=== PATIENT | female | born 1975 | race Caucasian/White ===

== ENCOUNTER 2022-03-10 10:43 | Observation (INO) ==
[~2022-03-10 10:43] MED LIST: Naloxone 0.4 mg VIAL 0.4 mg/ml 1 ml VIAL IV PUSH PRN
[2022-03-10 11:12] LABS: Rapid COVID-19 Molecular Detected (Undetected)
[2022-03-10] MEDS ORDERED: CLINDAMYCIN 900 MG IVPB ONE (11:30)
[2022-03-10] MEDS ORDERED: oxyCODONE SR 10 mg TAB ONE (12:19)
[2022-03-10] MEDS ORDERED: Ondansetron 4 mg VIAL 2 MG/ML 2 ml VIAL ONE (12:20)
[2022-03-10] MEDS ORDERED: Scopolamine 1 mg/72hr PATCH ONE (12:20)
[2022-03-10 12:24] LABS: INR 1.04 (0.89-1.11)
[2022-03-10 12:37] LABS: ABS Lymphocytes 1.3 10^3/ul (1.0-4.8); ABS Monocytes 0.4 10^3/ul (0-0.8); ABS Neutrophils 3.5 10^3/ul (1.5-7.7); Eosinophil % 0.9 %; Hematocrit 34 % (35-47); Hemoglobin 10.6 g/dL (12.0-16.0); Mean Corpuscular HGB Conc 31 g/dL (31-36); Mean Corpuscular Hemoglobin 21 pg (27-31); Mean Corpuscular Volume 68 fL (80-97); Mean Platelet Volume 7.6 fL (7.4-10.4); Nucleated Red Blood Cells % 0.1; Platelet Count 378 10^3/uL (150-450); Red Cell Distribution Width 22 % (10-15); White Blood Count 5.2 10^3/uL (3.5-10.8)
[2022-03-10 12:58] LABS: Anion Gap 8 mmol/L (2-11); Blood Urea Nitrogen 9 mg/dL (6-24); CO2 Carbon Dioxide 24 mmol/L (22-32); Calcium 8.9 mg/dL (8.6-10.3); Chloride 105 mmol/L (101-111); Glucose 68 mg/dL (70-100); Potassium 3.9 mmol/L (3.5-5.0); Sodium 137 mmol/L (135-145)
[2022-03-10] MEDS ORDERED: Heparin 2 UNITS/ML IVPREMIX 3,000 UNIT/1,500 ML BAG IV ONE (12:59)
[2022-03-10] MEDS ORDERED: Lidocaine 1% VIAL 10 MG/ML VIAL 30 ML ONE (12:59)
[2022-03-10] MEDS ORDERED: Midazolam 5 mg/5 ml VIAL 1 mg/ml 5 ml VIAL (5 mg) ONE (13:00)
[2022-03-10] MEDS ORDERED: fentaNYL 100 mcg/2 ml 50 MCG/ML VIAL ONE (13:00)
[2022-03-10] MEDS ORDERED: nitroGLYCERIN DRIP 25,000 MCG/250 ML BTL ONE (13:01)
[2022-03-10 13:04] LABS: HCG Pregnancy < 0.60 mIU/mL
[2022-03-10 13:05] LABS: Activated Partial Thrombo Time 37.1 seconds (26.0-38.0)
[2022-03-10] MEDS ORDERED: Iohexol 350 (CONTRAST) 100 ML PAK IV ONE ×2 (13:09→13:34)
[2022-03-10] MEDS ORDERED: HYDROmorphone PCA 20 MG/20 ML PCA.SYRING PCA SCH (14:00)
[2022-03-10] MEDS ORDERED: HYDROmorphone 0.5 MG/0.5 ML SYRINGE ONE ×3 (14:20→14:36)
[2022-03-10] MEDS ORDERED: NS 0.9% 1,000 ML IV SCH (16:30)
[2022-03-10] MEDS ORDERED: HYDROmorphone 0.5 MG/0.5 ML SYRINGE IV ONE (17:00)
[2022-03-10] MEDS: Ondansetron 4 mg VIAL 2 MG/ML 2 ml VIAL IV SCH (18:12)
[2022-03-11] MEDS: Ondansetron 4 mg VIAL 2 MG/ML 2 ml VIAL IV SCH ×2 (00:28→08:30)
[2022-03-11 06:34] LABS: ABS Eosinophils 0.1 10^3/ul (0-0.6); ABS Monocytes 0.6 10^3/ul (0-0.8); ABS Neutrophils 5.9 10^3/ul (1.5-7.7); Eosinophil % 0.9 %; Hematocrit 33 % (35-47); Hemoglobin 10.1 g/dL (12.0-16.0); Lymphocyte % 12.6 %; Mean Corpuscular HGB Conc 31 g/dL (31-36); Mean Corpuscular Hemoglobin 21 pg (27-31); Mean Corpuscular Volume 69 fL (80-97); Mean Platelet Volume 7.6 fL (7.4-10.4); Platelet Count 324 10^3/uL (150-450); Red Blood Count 4.77 10^6 /uL (3.70-4.87); Red Cell Distribution Width 22 % (10-15); White Blood Count 7.6 10^3/uL (3.5-10.8)
[2022-03-11 07:09] LABS: Calcium 8.2 mg/dL (8.6-10.3); Potassium 4.6 mmol/L (3.5-5.0); eGFR CKD-EPI 108.1 (>60)
[2022-03-11 08:37] VITALS: BP 125/60
[2022-03-11] MEDS ORDERED: HYDROcodone/ACETAMIN 5/325 mg TAB PO PRN ×2 (09:02→09:45)
[2022-03-11] MEDS ORDERED: CMCS:Ketorolac 10 mg TAB (NF) PO SCH (10:00)
== END 2022-03-11 12:10 | disposition home or self-care (01) ==
LOC: MEDTELE 10:43 → CHICATH 10:43
PROVIDERS: ADMIT Internal Medicine; ATTEND Internal Medicine
PROC: ANG.UFE (2022-03-10 13:10)